=== PATIENT | male | born 1955 ===

== ENCOUNTER 2019-12-20 01:40 | Emergency (ER) | payer SELFPAY ==
[2019-12-20] MEDS ORDERED: IBUPROFEN 600 MG TABLET ONE (02:48)
== END 2019-12-20 04:14 | disposition home or self-care (01) ==
LOC: ED 01:40
DX: J06.9 Acute upper respiratory infection, unspecified (principal); J18.9 Pneumonia, unspecified organism; F17.210 Nicotine dependence, cigarettes, uncomplicated
CPT/HCPCS: 71045; 93005; 99283